=== PATIENT | female | born 1935 | race Caucasian/White ===

== ENCOUNTER 2017-10-22 12:56 | Emergency (ER) | payer SELFPAY, OTHER ==
[2017-10-22] MEDS: LACTATED RINGER S IV (14:23)
[2017-10-22 14:51] LABS: ADD MAN DIFF? NO
[2017-10-22 14:56] LABS: BASOPHILS % 0.6 % (0.0-2.0); EOSINOPHILS % 0.1 % (0.0-7.0); HEMATOCRIT 46.2 % (37.0-47.0); HEMOGLOBIN 14.4 g/dl (12.0-16.0); LYMPHOCYTES # 0.9 10^3/ul (0.8-2.9); LYMPHOCYTES % 12.5 % (15.0-51.0); MEAN CORPUSCULAR HEMOGLOBIN 28.5 pg (29.0-33.0); MEAN CORPUSCULAR HGB CONC 31.2 g/dl (32.0-37.0); MEAN CORPUSCULAR VOLUME 91.3 fl (82.0-101.0); MEAN PLATELET VOLUME 11.4 fl (7.4-10.4); MONOCYTE # 0.3 10^3/ul (0.3-0.9); MONOCYTES % 3.8 % (0.0-11.0); NEUTROPHIL # 5.8 10^3/ul (1.6-7.5); NEUTROPHILS % 82.6 % (39.0-77.0); PLATELET COUNT 188 10^3/UL (140-415); RED BLOOD COUNT 5.06 10^6/ul (4.20-5.40); RED CELL DISTRIBUTION WIDTH 15.9 % (11.5-14.5)
[2017-10-22 15:17] LABS: INR 1.11; PROTIME 14.5 Sec (11.9-14.9); PT RATIO 1.1
[2017-10-22 15:18] LABS: ALANINE AMINOTRANSFERASE 50 IU/L (13-69); ALBUMIN 3.4 g/dl (3.3-4.9); ALBUMIN/GLOBULIN RATIO 0.89; ALKALINE PHOSPHATASE 402 IU/L (42-121); ANION GAP 23 (8-16); ASPARTATE AMINO TRANSFERASE 204 IU/L (15-46); BILIRUBIN,INDIRECT 0.5 mg/dl (0-1.1); BILIRUBIN,TOTAL 0.5 mg/dl (0.2-1.3); BLOOD UREA NITROGEN 33 mg/dl (7-20); CALCIUM 9.3 mg/dl (8.4-10.2); CARBON DIOXIDE 24 mmol/L (21-31); CHLORIDE 102 mmol/L (97-110); CREATININE 1.35 mg/dl (0.44-1.00); GLUCOSE 164 mg/dl (70-220); PARTIAL THROMBOPLASTIN TIME 29.2 Sec (25.0-35.0); SODIUM 144 mmol/L (135-144); TOTAL PROTEIN 7.2 g/dl (6.1-8.1)
[2017-10-22 15:30] LABS: TROPONIN-I < 0.012 ng/ml (0.00-0.12)
[2017-10-22 15:33] LABS: LACTIC ACID 4.2 mmol/L (0.5-2.0)
[2017-10-22 15:44] LABS: ADD UMIC YES; UR ASCORBIC ACID NEGATIVE (NEGATIVE); UR BACTERIA FEW /HPF (NONE SEEN); UR BILIRUBIN (Dip) NEGATIVE (NEGATIVE); UR BLOOD (Dip) 1+ mg/dL (NEGATIVE); UR CLARITY CLEAR (CLEAR); UR COLOR YELLOW (YELLOW); UR GLUCOSE (Dip) NEGATIVE (NEGATIVE); UR KETONES (Dip) NEGATIVE (NEGATIVE); UR LEUKOCYTE ESTERASE (Dip) NEGATIVE Leu/ul (NEGATIVE); UR MUCUS FEW /HPF (NONE SEEN); UR NITRITE (Dip) NEGATIVE (NEGATIVE); UR RBC 2 /HPF (0-5); UR SPECIFIC GRAVITY (Dip) 1.015 (1.003-1.030); UR TOTAL PROTEIN (Dip) NEGATIVE (NEGATIVE); UR UROBILINOGEN (Dip) 1+ mg/dL (NEGATIVE); UR WBC 1 /HPF (0-5)
[2017-10-22 17:29] LABS: LACTIC ACID 3.5 mmol/L (0.5-2.0)
== END 2017-10-22 19:04 | disposition home or self-care (01) ==
LOC: E/R 19:04
DX: E87.2 Acidosis (principal); E86.0 Dehydration; N18.9 Chronic kidney disease, unspecified; G93.40 Encephalopathy, unspecified; R40.2142 Coma scale, eyes open, spontaneous, at arrival to emergency department; R40.2252 Coma scale, best verbal response, oriented, at arrival to emergency department; R40.2362 Coma scale, best motor response, obeys commands, at arrival to emergency department; Z85.3 Personal history of malignant neoplasm of breast
CPT/HCPCS: 36415; 70450; 71045; 80053; 81001; 83605; 84484; 85025; 85610; 85730; 87040; 87086; 93005; 99285-25

== ENCOUNTER 2017-11-12 14:12 | Inpatient (IN) | payer MEDICAID ==
[2017-11-12] MEDS: DEXTROSE 5%-0.9% NACL 1,000 ML IV (14:44)
[2017-11-12 14:46] LABS: ADD MAN DIFF? NO
[2017-11-12 14:48] LABS: ABNORMAL IP MESSAGE 1; BASOPHILS % 0.4 % (0.0-2.0); HEMOGLOBIN 13.6 g/dl (12.0-16.0); LYMPHOCYTES # 0.6 10^3/ul (0.8-2.9); LYMPHOCYTES % 7.6 % (15.0-51.0); MEAN CORPUSCULAR HEMOGLOBIN 29.4 pg (29.0-33.0); MEAN CORPUSCULAR HGB CONC 31.6 g/dl (32.0-37.0); MEAN CORPUSCULAR VOLUME 92.9 fl (82.0-101.0); MEAN PLATELET VOLUME 11.5 fl (7.4-10.4); MONOCYTE # 0.4 10^3/ul (0.3-0.9); MONOCYTES % 5.2 % (0.0-11.0); NEUTROPHIL # 6.2 10^3/ul (1.6-7.5); NEUTROPHILS % 86.1 % (39.0-77.0); PLATELET COUNT 167 10^3/UL (140-415); RED BLOOD COUNT 4.63 10^6/ul (4.20-5.40); RED CELL DISTRIBUTION WIDTH 17.7 % (11.5-14.5)
[2017-11-12 14:48] LABS: WHITE BLOOD COUNT 7.2 10^3/ul (4.8-10.8)
[2017-11-12 15:04] LABS: ANION GAP 32 (8-16); BLOOD UREA NITROGEN 50 mg/dl (7-20); CALCIUM 8.3 mg/dl (8.4-10.2); CARBON DIOXIDE 13 mmol/L (21-31); CHLORIDE 104 mmol/L (97-110); CREATININE 1.93 mg/dl (0.44-1.00); GLUCOSE 179 mg/dl (70-220); POTASSIUM 5.2 mmol/L (3.5-5.1); SODIUM 144 mmol/L (135-144)
[2017-11-12 15:16] LABS: TROPONIN-I 0.022 ng/ml (0.00-0.12)
[2017-11-12 15:40] LABS: ADD UMIC YES; UR AMORPHOUS CRYSTAL FEW /HPF (NONE SEEN); UR ASCORBIC ACID NEGATIVE (NEGATIVE); UR BACTERIA FEW /HPF (NONE SEEN); UR BILIRUBIN (Dip) NEGATIVE (NEGATIVE); UR BLOOD (Dip) NEGATIVE (NEGATIVE); UR CLARITY SLIGHTLY CLOUDY (CLEAR); UR COLOR AMBER (YELLOW); UR GLUCOSE (Dip) NEGATIVE (NEGATIVE); UR KETONES (Dip) TRACE mg/dL (NEGATIVE); UR LEUKOCYTE ESTERASE (Dip) NEGATIVE Leu/ul (NEGATIVE); UR NITRITE (Dip) NEGATIVE (NEGATIVE); UR RBC 0 /HPF (0-5); UR SPECIFIC GRAVITY (Dip) 1.017 (1.003-1.030); UR TOTAL PROTEIN (Dip) 1+ mg/dl (NEGATIVE); UR UROBILINOGEN (Dip) 2+ mg/dL (NEGATIVE); UR WBC 1 /HPF (0-5)
[2017-11-12] MEDS ORDERED: ONDANSETRON 4 MG INJ IV (16:30)
[2017-11-12] MEDS ORDERED: ACETAMINOPHEN 325 MG TAB PO (16:30)
[2017-11-12] MEDS: LORAZEPAM 2 MG INJ IV ×2 (17:29→20:37)
[2017-11-12] MEDS ORDERED: ONDANSETRON 4 MG TAB PO (20:00)
[2017-11-12] MEDS ORDERED: NACL 0.9% 3 ML SYG IV (20:00)
[2017-11-12] MEDS: HEPARIN 5,000 UNIT/0.5 ML VIAL SC (21:00)
[2017-11-12] MEDS: SOD CHLORIDE 0.9% 1,000 ML IV ×2 (21:00→22:45)
[2017-11-12 22:46] LABS: ANION GAP 33 (8-16); BLOOD UREA NITROGEN 51 mg/dl (7-20); CALCIUM 8.3 mg/dl (8.4-10.2); CARBON DIOXIDE 12 mmol/L (21-31); CHLORIDE 106 mmol/L (97-110); CREATININE 1.95 mg/dl (0.44-1.00); GLUCOSE 242 mg/dl (70-220); POTASSIUM 5.7 mmol/L (3.5-5.1); SODIUM 145 mmol/L (135-144)
[2017-11-12] MEDS ORDERED: GLUCOSE GEL 15 GRAM TUBE PO ×2 (23:45)
[2017-11-12] MEDS ORDERED: DEXTROSE 50% 50 ML SYRINGE IV ×2 (23:45)
[2017-11-12] MEDS ORDERED: GLUCAGON 1 MG INJ IM (23:45)
[2017-11-12] MEDS ORDERED: GLUCOSE GEL 15 GRAM TUBE BUCCAL (23:45)
[2017-11-13] MEDS: INSULIN ASPART [NOVOLOG] 3 ML PEN SC ×6 (00:53→21:00)
[2017-11-13] MEDS: NA POLYST SULFON 15 GM/60 ML BTL PR ×2 (01:31→10:32)
[2017-11-13 06:26] LABS: ANION GAP 32 (8-16); BLOOD UREA NITROGEN 54 mg/dl (7-20); CALCIUM 7.9 mg/dl (8.4-10.2); CARBON DIOXIDE 13 mmol/L (21-31); CHLORIDE 107 mmol/L (97-110); CREATININE 2.13 mg/dl (0.44-1.00); GLUCOSE 222 mg/dl (70-220); MAGNESIUM 2.3 mg/dl (1.7-2.5); PHOSPHORUS 7.5 mg/dl (2.5-4.9); POTASSIUM 5.9 mmol/L (3.5-5.1); SODIUM 146 mmol/L (135-144)
[2017-11-13] MEDS: HEPARIN 5,000 UNIT/0.5 ML VIAL SC ×2 (10:30→22:37)
[2017-11-13] MEDS: SOD CHLORIDE 0.9% 1,000 ML IV (15:17)
[2017-11-13] MEDS ORDERED: KETOROLAC 15 MG INJ IV (17:30)
[2017-11-13] MEDS ORDERED: LORAZEPAM 2 MG INJ (21:33)
[2017-11-13] MEDS: LORAZEPAM 2 MG INJ IV (22:05)
[2017-11-13] MEDS: SOD CHLORIDE 0.9% 500 ML IV (22:38)
[2017-11-14] MEDS: INSULIN ASPART [NOVOLOG] 3 ML PEN SC ×4 (01:00→12:53)
[2017-11-14] MEDS: SOD CHLORIDE 0.9% 1,000 ML IV ×2 (04:17→15:34)
[2017-11-14] MEDS: HEPARIN 5,000 UNIT/0.5 ML VIAL SC (09:12)
[2017-11-14] MEDS: INFLUENZA VIRUS VACCINE 0.5 ML (DISPENSING) IM* (09:19)
[2017-11-14 12:21] LABS: ANION GAP 21 (8-16)
[2017-11-14 12:22] LABS: BLOOD UREA NITROGEN 73 mg/dl (7-20); CALCIUM 6.2 mg/dl (8.4-10.2); CARBON DIOXIDE 16 mmol/L (21-31); CHLORIDE 114 mmol/L (97-110); GLUCOSE 117 mg/dl (70-220); PHOSPHORUS 6.1 mg/dl (2.5-4.9); POTASSIUM 4.8 mmol/L (3.5-5.1); SODIUM 146 mmol/L (135-144)
[2017-11-14] MEDS ORDERED: ATROPINE 1% 5 ML OPH SL ×2 (17:00→19:24)
[2017-11-14] MEDS ORDERED: ARTIFICIAL TEARS 15 ML OPH BOTH EYES (17:00)
[2017-11-14] MEDS ORDERED: LORAZEPAM 2 MG INJ IV (17:00)
[2017-11-14] MEDS ORDERED: ONDANSETRON 4 MG INJ IV (17:00)
[2017-11-14] MEDS: morphine (DRIP) 100 MG/100 ML 100 ML IV (18:47)
[2017-11-15] MEDS: SOD CHLORIDE 0.9% 1,000 ML IV ×3 (01:42→22:13)
[2017-11-16] MEDS: SOD CHLORIDE 0.9% 1,000 ML IV (09:29)
[2017-11-16] MEDS: morphine (DRIP) 100 MG/100 ML 100 ML IV (13:12)
== END 2017-11-17 03:14 | disposition expired | DRG 640 ==
LOC: MS2 11-14 21:56 → E/R 14:12 → MS2 16:08
DX: R62.7 Adult failure to thrive (principal); E43 Unspecified severe protein-calorie malnutrition; Z68.1 Body mass index [BMI] 19.9 or less, adult; F03.90 Unspecified dementia, unspecified severity, without behavioral disturbance, psychotic disturbance, mood disturbance, and anxiety; E86.0 Dehydration; I95.9 Hypotension, unspecified; R09.02 Hypoxemia
CPT/HCPCS: 36415; 80048; 81001; 82962; 83735; 84100; 84484; 85025; 87070; 96374; 99285-25